=== PATIENT | female | born 1985 | race American Indian/Alaskan Native ===

== ENCOUNTER 2020-09-06 10:52 | Emergency (ER) | payer MEDICAID ==
[2020-09-06 11:05] VITALS: BP 158/92
[2020-09-06] MEDS ORDERED: ONDANSETRON 4 MG ODT TAB ONE (11:47)
--- NOTE | 2020-09-06 11:47 | Event Note ---
ED Screening Note ED Screening Note: 35-year-old [place] female presents emergency department complaining of a 1 day history of right lower quadrant pain that radiates through her to her right flank associated with nausea and and and and vomiting and no pain with urination. She reports feverish, chills, sweats. No chest pain or palpitation no hemoptysis no hematemesis no hematochezia. Pain is a 10 of 10 This initial assessment/diagnostic orders/clinical plan/treatment(s) is/are subject to change based on patients health status, clinical progression and re- assessment by fellow clinical providers in the ED. Further treatment and workup at subsequent clinical providers discretion. Patient/guardian urged not to elope from the ED as their condition may be serious if not clinically assessed and managed. Initial orders include: Plan obtain a urinalysis as well as labs and a CT scan to evaluate for possible kidney stone versus appendicitis
[2020-09-06] MEDS ORDERED: ONDANSETRON 4 MG ODT TAB PO STA (11:49)
[2020-09-06 13:11] LABS: Basophils # (Auto) 0.1 K/mm3 (0.0-0.1); Basophils % (Auto) 0.3 % (0.0-1.8); Eosinophils # (Auto) 0.1 K/mm3 (0.0-0.4); Eosinophils % (Auto) 0.4 % (0.0-4.3); Hematocrit 40.4 % (30.3-42.9); Hemoglobin 13.4 gm/dl (10.1-14.3); Lymphocytes # (Auto) 1.6 K/mm3 (1.2-5.4); Lymphocytes % (Auto) 8.2 % (13.4-35.0); Mean Corpuscular HGB Conc 33 % (30-34); Mean Corpuscular Volume 87 fl (79-97); Monocytes # (Auto) 1.6 K/mm3 (0.0-0.8); Monocytes % (Auto) 8.3 % (0.0-7.3); Platelet Count 342 K/mm3 (140-440); Red Blood Count 4.65 M/mm3 (3.65-5.03); Red Cell Distribution Width 14.8 % (13.2-15.2)
[2020-09-06] MEDS ORDERED: MORPHINE 4 MG/1 ML INJ IV ONE (13:15)
[2020-09-06] MEDS ORDERED: SODIUM CHLORIDE 0.9% 1000 ML 1,000 ML IV ONE (13:15)
[2020-09-06] MEDS ORDERED: METOCLOPRAMIDE 10 MG/2 ML INJ IV ONE ×2 (13:19→13:39)
[2020-09-06] MEDS ORDERED: diphenhydrAMINE 50 MG/ML VIAL IV ONE ×2 (13:19→13:39)
--- NOTE | 2020-09-06 13:26 | Emergency Department Report ---
<EHSAN PRABHAKAR - Last Filed: 09/06/20 17:04> ED General Adult HPI - General Chief complaint: Urogenital-Female Stated complaint: ABD PAIN, VOMITING Time Seen by Provider: 09/06/20 13:15 Source: patient Mode of arrival: Ambulatory Limitations: No Limitations - History of Present Illness Initial comments: 35-year-old -[place] female patient presents with complaints of sudden onset of right lower abdominal pain x last night. She rates the pain as a 10/10 in severity and states it radiates up her right side. She denies any dysuria/hematuria, however she does admit to urinary frequency. Patient also denies any vaginal discharge, melena/hematochezia, hematemesis/coffee-ground emesis, or fever/chills/sweats. She has history of a cholecystectomy and admits to nausea and vomiting. She denies any other past medical history. Severity scale (0 -10): 10 - Related Data Previous Rx's Medication Instructions Recorded Last Taken Type Ciprofloxacin HCl [Ciprofloxacin 500 mg PO BID 7 Days #14 tab 09/06/20 Unknown Rx TAB] Ibuprofen [Motrin 800 MG tab] 800 mg PO Q8HR PRN #30 tablet 09/06/20 Unknown Rx Allergies Allergy/AdvReac Type Severity Reaction Status Date / Time No Known Allergies Allergy Unverified 09/06/20 11:49 ED Review of Systems Constitutional: denies: chills, diaphoresis, fever, malaise, weakness ENT: denies: throat pain Respiratory: denies: cough, shortness of breath Cardiovascular: denies: chest pain, palpitations Endocrine: denies: excessive sweating Gastrointestinal: abdominal pain, nausea, vomiting. denies: diarrhea, constipation, hematemesis, melena, hematochezia Genitourinary: urgency, frequency. denies: dysuria, hematuria, discharge Musculoskeletal: denies: back pain Skin: denies: rash, change in color Neurological: denies: headache Hematological/Lymphatic: denies: swollen glands ED Past Medical Hx - Past Medical History Previous Medical History?: No - Surgical History Past Surgical History?: Yes Additional Surgical History: Gallstone Surgery - Social History Smoking Status: Never Smoker Substance Use Type: None - Medications Home Medications: Home Medications Medication Instructions Recorded Confirmed Last Taken Type Ciprofloxacin HCl [Ciprofloxacin 500 mg PO BID 7 Days #14 tab 09/06/20 Unknown Rx TAB] Ibuprofen [Motrin 800 MG tab] 800 mg PO Q8HR PRN #30 tablet 09/06/20 Unknown Rx ED Physical Exam - General Limitations: No Limitations General appearance: alert, in no apparent distress, obese (Patient appears) - Head Head exam: Present: atraumatic, normocephalic - Eye Eye exam: Present: normal appearance - ENT ENT exam: Present: mucous membranes moist - Neck Neck exam: Present: normal inspection - Respiratory Respiratory exam: Present: normal lung sounds bilaterally. Absent: respiratory distress - Cardiovascular Cardiovascular Exam: Present: regular rate, normal rhythm - GI/Abdominal GI/Abdominal exam: Present: soft, tenderness (Right lower quadrant and right side), normal bowel sounds. Absent: distended, rebound, rigid - Extremities Exam Extremities exam: Present: full ROM - Back Exam Back exam: Present: normal inspection - Neurological Exam Neurological exam: Present: alert, oriented X3, normal gait - Psychiatric Psychiatric exam: Present: normal affect, normal mood - Skin Skin exam: Present: warm, dry, intact, normal color. Absent: rash, cyanosis, diaphoretic, ecchymosis ED Medical Decision Making - Lab Data Result diagrams: 09/06/20 12:10 09/06/20 12:10 - Medical Decision Making 35-year-old -[place] female patient presents with complaints of sudden onset of right lower abdominal pain x last night. She rates the pain as a 10/10 in severity and states it radiates up her right side. She denies any dysuria/h ematuria, however she does admit to urinary frequency. Patient also denies any vaginal discharge, melena/hematochezia, hematemesis/coffee-ground emesis, or fever/chills/sweats. She has history of a cholecystectomy and admits to nausea and vomiting. She denies any other past medical history. CT is negative for appendicitis, however shows inflammation surrounding the right ovary. CBC shows a white count of 19.1. UA shows WBCs = 8 and positive nitrites. Discussed possible PID, patient states she had STI testing 3 weeks ago and is not concerned for STIs. She declines any pelvic exam at this time. Transvaginal ultrasound results pending. Patient handed off to Delano Barron PA-C pending results. Rocephin 1 g given for possible pyelonephritis. Patient is currently nontoxic-appearing and stable at this time ED Disposition Clinical Impression: Ovarian cyst Qualifiers: Laterality: right Qualified Code(s): N83.201 - Unspecified ovarian cyst, right side UTI (urinary tract infection) Qualifiers: Urinary tract infection type: acute cystitis Hematuria presence: without hematuria Qualified Code(s): N30.00 - Acute cystitis without hematuria Disposition: TO HOME OR SELFCARE Condition: Stable Instructions: Ovarian Cyst, [id number], Urinary Tract Infection, Adult Prescriptions: Ciprofloxacin HCl [Ciprofloxacin TAB] 500 mg PO BID 7 Days #14 tab Ibuprofen [Motrin 800 MG tab] 800 mg PO Q8HR PRN #30 tablet PRN Reason: pain Referrals: EDMOND LOPEZ MD [Staff Physician] - 3-5 Days Forms: Work/School Release Form(ED) <MANINDER BARRON - Last Filed: 09/06/20 19:02> ED Review of Systems ROS: Stated complaint: ABD PAIN, VOMITING Other details as noted in HPI ED Course Vital Signs 09/06/20 10:59 Temperature 98.8 F Pulse Rate 97 H Blood Pressure 158/92 [Right] O2 Sat by Pulse 99 Oximetry ED Medical Decision Making - Lab Data Result diagrams: 09/06/20 12:10 09/06/20 12:10 - Radiology Data Radiology results: report reviewed, image reviewed interpreted by me: Findings Reporting MD: Stan Salcido Dictation Time: September 06, 2020 17:19 T ranscriptionist: Not available Export Manager Date: PELVIC ULTRASOUND HISTORY: Abnormal right ovary by CT. COMPARISON: CT abdomen and pelvis 08/06/2020. FINDINGS: Imaging was performed by transabdominally and endovaginally. FINDINGS: The uterus measures 10.1 x 4.4 x 5 cm. The endometrial stripe is thickened measuring 13 mm. The left ovary is normal measuring 3.5 x 2.3 x 3.1 cm. The right ovary measures 6.7 x 3.6 x 6.1 cm. A complex cystic lesion seen anteriorly measures 3.6 cm. Evaluation was limited by body habitus. Both ovaries demonstrate flow. No adnexal fluid collection is identified. IMPRESSION: Suspected complex cyst at the right ovary. Evaluation limited by body habitus. Signer Name: Stan Salcido MD Signed: 09/06/2020 5:19 PM Workstation Name: [id number] Findings Reporting MD: Navjot Rider Dictation Time: September 06, 2020 14:42 Tr anscriptionist: Not available Export Manager Date: CT ABDOMEN AND PELVIS WITHOUT CONTRAST INDICATION / CLINICAL INFORMATION: flank and right pelvic pain. TECHNIQUE: Axial CT images were obtained through the abdomen and pelvis without IV contrast. All CT scans at this location are performed using CT dose reduction for ALARA by means of automated exposure control. COMPARISON: None available. FINDINGS: LOWER CHEST: No significant abnormality. LIVER: No significant abnormality. GALLBLADDER: Cholecystectomy. BILE DUCTS: No significant abnormality. PANCREAS: No significant abnormality. SPLEEN: No significant abnormality. ADRENALS: No significant abnormality. RIGHT KIDNEY / URETER: No significant abnormality. LEFT KIDNEY / URETER: No significant abnormality. STOMACH / SMALL BOWEL: Small sliding-type hiatal hernia. No small bowel abnormality. COLON: No significant abnormality. APPENDIX: Not visualized. PERITONEUM: No free fluid. No free air. No fluid collection. LYMPH NODES: No significant adenopathy. AORTA / ARTERIES: No significant abnormality. IVC / VEINS: No significant abnormality. URINARY BLADDER: No stones or other acute abnormality. REPRODUCTIVE ORGANS: Enlarged right ovary measuring 4.8 x 3.9 x 5.4 cm with mild surrounding strandy inflammatory change. Left ovary and uterus appear normal. ADDITIONAL FINDINGS: None. SKELETAL SYSTEM: No significant abnormality. IMPRESSION: 1. No urinary tract stones or hydronephrosis. 2. Enlarged right ovary with mild surrounding inflammatory change. Ultrasound pelvis is recommended for further evaluation. Signer Name: Navjot Rider MD Signed: 09/06/2020 2:42 PM Workstation Name: [id number] - Medical Decision Making CT no pyelonephritis ultrasound right ovarian cyst likely , this is nightlight not likely abscess there is no fever or chills. Patient is tolerating p.o. intake there is no nausea vomiting. Symptoms are resolved after medications gi felicitas in ED. However patient DC'd to home with prescriptions. Patient will follow-up with [facility] for evaluation of ovarian cyst. Patient verbalizes agreement and understanding of discharge plan patient DC'd home in stable condition at this time Critical care attestation.: If time is entered above; I have spent that time in minutes in the direct care of this critically ill patient, excluding procedure time. ED Disposition Is pt being admited?: No Does the pt Need Aspirin: No Time of Disposition: 19:02
[2020-09-06 13:37] LABS: Alanine Aminotransferase 15 units/L (7-56); Albumin 3.6 g/dL (3.9-5); Blood Urea Nitrogen 9 mg/dL (7-17); Calcium 8.9 mg/dL (8.4-10.2); Hemolysis Index 30
[2020-09-06 13:49] LABS: BUN/Creatinine Ratio 13
[2020-09-06 14:25] LABS: Bacteria,Urine 3+ /HPF (Negative); Bilirubin,Urine NEG (Negative); Blood,Urine MOD (Negative); Color,Urine Amber (Yellow); Mucus,Urine 3+ /HPF; Urobilinogen,Urine < 2.0 mg/dL (<2.0)
[2020-09-06 14:38] LABS: HCG Qualitative,Urine Negative (Negative)
[2020-09-06] MEDS ORDERED: HYDROmorphone 2 MG/1 ML INJ IV ONE (15:42)
--- NOTE | 2020-09-06 15:46 | Cat Scan Report ---
CT ABDOMEN AND PELVIS WITHOUT CONTRAST INDICATION / CLINICAL INFORMATION: flank and right pelvic pain. TECHNIQUE: Axial CT images were obtained through the abdomen and pelvis without IV contrast. All CT scans at this location are performed using CT dose reduction for ALARA by means of automated exposure control. COMPARISON: None available. FINDINGS: LOWER CHEST: No significant abnormality. LIVER: No significant abnormality. GALLBLADDER: Cholecystectomy. BILE DUCTS: No significant abnormality. PANCREAS: No significant abnormality. SPLEEN: No significant abnormality. ADRENALS: No significant abnormality. RIGHT KIDNEY / URETER: No significant abnormality. LEFT KIDNEY / URETER: No significant abnormality. STOMACH / SMALL BOWEL: Small sliding-type hiatal hernia. No small bowel abnormality. COLON: No significant abnormality. APPENDIX: Not visualized. PERITONEUM: No free fluid. No free air. No fluid collection. LYMPH NODES: No significant adenopathy. AORTA / ARTERIES: No significant abnormality. IVC / VEINS: No significant abnormality. URINARY BLADDER: No stones or other acute abnormality. REPRODUCTIVE ORGANS: Enlarged right ovary measuring 4.8 x 3.9 x 5.4 cm with mild surrounding strandy inflammatory change. Left ovary and uterus appear normal. ADDITIONAL FINDINGS: None. SKELETAL SYSTEM: No significant abnormality. IMPRESSION: 1. No urinary tract stones or hydronephrosis. 2. Enlarged right ovary with mild surrounding inflammatory change. Ultrasound pelvis is recommended f or further evaluation. Signer Name: Navjot Rider MD Signed: 09/06/2020 3:42 PM Workstation Name: [id number]
[2020-09-06] MEDS ORDERED: cefTRIAXone/NS 1 GM/50 ML 1 GM/50 ML BAG IV ONE (16:50)
[2020-09-06] MEDS ORDERED: KETOROLAC 30 MG/1 ML INJ IV ONE (17:04)
--- NOTE | 2020-09-06 18:13 | Ultrasound Report ---
US transvaginal INDICATION / CLINICAL INFORMATION: abnormal R ovary changes on CT. TECHNIQUE: Transabdominal. Duplex Color Doppler used: Yes. COMPARISON: None available FINDINGS: UTERUS: Measures 10.1 cm. -Endometrial stripe measures 1.3 cm. There is fluid seen within the endometrial canal. - Mass lesions: None. RIGHT ADNEXA: Dilated tubular right adnexal structure. No surrounding hyperemia. LEFT ADNEXA: No significant ovarian cyst or mass. Normal color Doppler blood flow. URINARY BLADDER: No significant abnormality. FREE FLUID: None. ADDITIONAL FINDINGS: None. IMPRESSION: 1. There is a tubular right adnexal structure which is most consistent with a hydrosalpinx. Correlat e clinically. Signer Name: Raymond Marshall MD Signed: 09/06/2020 6:08 PM Workstation Name: [id number]
--- NOTE | 2020-09-06 18:23 | Ultrasound Report ---
PELVIC ULTRASOUND HISTORY: Abnormal right ovary by CT. COMPARISON: CT abdomen and pelvis 08/06/2020. FINDINGS: Imaging was performed by transabdominally and endovaginally. FINDINGS: The uterus measures 10.1 x 4.4 x 5 cm. The endometrial stripe is thickened measuring 13 mm. The left ovary is normal measuring 3.5 x 2.3 x 3.1 cm. The right ovary measures 6.7 x 3.6 x 6.1 cm. A complex cystic lesion seen anteriorly measures 3.6 cm. Evaluation was limited by body habitus. Both ovaries demonstrate flow. No adnexal fluid collection is identified. IMPRESSION: Suspected complex cyst at the right ovary. Evaluation limited by body habitus. Signer Name: Stan Salcido MD Signed: 09/06/2020 6:19 PM Workstation Name: [id number]
== END 2020-09-06 19:10 | disposition home or self-care (01) ==
LOC: ED 10:52
DX: N83.201 Unspecified ovarian cyst, right side (principal); N39.0 Urinary tract infection, site not specified; Z79.1 Long term (current) use of non-steroidal anti-inflammatories (NSAID); Z79.899 Other long term (current) drug therapy
CPT/HCPCS: 36415; 74176; 76830; 76856; 80053; 81001; 81025; 82140; 83690; 85025; 87040; 87086; 96361; 96365; 96375; 99284; J0696; J1170; J1200; J1885; J2270; J2765; J7030; Q0162